=== PATIENT | male | born 1995 | race Native Hawaiian/Other Pacific Islander ===

== ENCOUNTER 2020-01-04 16:13 | Outpatient (REF) | payer OTHER, SELFPAY ==
[2020-01-04 16:33] LABS: MANUAL DIFF FLAG NO
[2020-01-04 16:39] LABS: Basophils Absolute Auto 0.1 X10*3/uL (0.0-0.2); Basophils Percent Auto 0.7 % (0-2); Eosinophils Absolute Auto 0.2 X10*3/uL (0.0-0.4); Eosinophils Percent Auto 2.5 % (0-4); Hematocrit 42.1 % (42-52); Hemoglobin 14.2 g/dl (14.0-18.0); Imm Gran Abs Auto 0.03 X10*3/uL (0.00-0.03); Imm Gran Pct Auto 0.4 % (0.0-0.4); Lymphocytes Absolute Auto 3.2 X10*3/uL (1.2-4.9); Lymphocytes Percent Auto 38.7 % (20-40); Mean Corpuscular HGB Conc 33.7 g/dl (31.0-36.0); Mean Corpuscular Hemoglobin 27.8 pg (27.0-33.0); Mean Corpuscular Volume 82.5 fL (80-98); Mean Platelet Volume 9.8 fL (9.4-12.4); Monocytes Absolute Auto 0.7 X10*3/uL (0.1-1.2); Monocytes Percent Auto 8.2 % (2-11); Neutrophils Absolute Auto 4.1 X10*3/uL (2.0-8.3); Neutrophils Percent Auto 49.5 % (45-73); Platelet Count 276 X10*3/uL (160-400); Red Cell Distribution Width 12.7 % (11.0-16.0); White Blood Count 8.3 X10*3/uL (4.8-10.8)
[2020-01-04 17:08] LABS: Alanine Aminotransferase 74 U/L (0-40); Albumin Level 4.5 g/dL (3.5-5.0); Alkaline Phosphatase 66 U/L (39-117); Anion Gap 13 (12-20); Aspartate Amino Transferase 36 U/L (5-37); Bilirubin Total 0.7 mg/dL (0.0-1.0); Blood Urea Nitrogen 17 mg/dL (9-16); Calcium 8.9 mg/dL (8.4-10.2); Carbon Dioxide 25 mmol/L (22-29); Chloride 106 mmol/L (96-108); Cholesterol 208 mg/dL; Estimated Glomerular Filt Rate > 60; Glucose Random 90 mg/dL (60-115); Potassium 4.2 mmol/l (3.3-5.1); Sodium 140 mmol/L (135-145); Total Protein 7.3 g/dL (6.5-8.0)
== END 2020-01-04 16:14 | disposition home or self-care (01) ==
LOC: HO.LAB 16:13
PROVIDERS: PCP Internal Medicine; Visit Provider Internal Medicine
DX: K57.90 Diverticulosis of intestine, part unspecified, without perforation or abscess without bleeding (principal)
CPT/HCPCS: 36415; 80053; 82465; 85025

== ENCOUNTER 2020-02-29 11:25 | Emergency (ER) | payer OTHER, SELFPAY ==
--- NOTE | 2020-02-29 11:58 | ED_ITS ---
HPI - Abdominal Pain General Chief Complaint: Abdominal Pain Stated Complaint: STOMACH PAIN Time Seen by Provider: 02/29/20 11:57 Source: patient Mode of arrival: ambulatory Limitations: no limitations History of Present Illness HPI narrative: 24-year-old male with a past medical history of diverticulitis tear with lower abdominal pain since yesterday. No nausea, vomiting, diarrhea. No fevers, chills or urinary symptoms. He tells me his last episode of diverticulitis was in November and he was treated with a course of antibiotics with resolved of symptoms. He tells me this feels similar MD elicited complaint: abdominal pain Pertinent past history: diverticulitis Onset (ago): day(s) (1) Pain Consistency: constant Location: RLQ and LLQ Severity: mild Quality: cramping Radiation: none Migration to: no migration Exacerbating factors: nothing Relieving factors: nothing Associated symptoms: denies other symptoms Related Data Previous Rx's Medication Instructions Recorded hydrocodone-acetaminophen 1 tab PO Q6H PRN #10 tab 02/29/20 levofloxacin 750 mg PO DAILY 7 Days #7 tab 02/29/20 metronidazole [Flagyl] 500 mg PO BID #14 tab 02/29/20 Allergies Allergy/AdvReac Type Severity Reaction Status Date / Time No Known Allergies Allergy Verified 02/29/20 12:17 Review of Systems Review of Systems Yes all other systems are reviewed and are negative Constitutional: Reports no additional constitutional complaints, Denies body ache(s), Denies chills, Denies fever(s), Denies headache(s) and Denies weakness Eyes: Reports no additional eye complaints and Denies change in vision Reports system reviewed and no additional complaints, except as documented, Denies dizziness, Denies headache(s), Denies nasal congestion, Denies nasal discharge and Denies neck pain Cardiovascular: Reports no additional cardiovascular complaints, Denies chest pain, Denies leg edema and Denies dyspnea Respiratory: Reports no additional respiratory complaints, Denies cough and Denies dyspnea Gastrointestinal: Reports no additional gastrointestinal complaints, Reports abdominal pain, Denies diarrhea, Denies nausea and Denies vomiting Genitourinary: Denies urinary incontinence Musculoskeletal: Reports no additional musculoskeletal complaints, Denies back pain, Denies arthralgias, Denies joint swelling, Denies neck pain, Denies numbness and Denies tingling Skin/Breast: Reports system reviewed and no additional complaints, except as docu and Denies rash Reports system reviewed and no additional complaints, except as documented, Denies Abnormal speech present, Denies dizziness, Denies headache(s), Denies numbness, Denies tingling and Denies weakness Physical Exam Vital Signs: Vital Signs: Last Vital Signs Temp 98.2 F 02/29/20 12:15 Pulse 61 02/29/20 14:58 Resp 16 02/29/20 14:58 BP 133/89 02/29/20 14:58 Pulse Ox 99 02/29/20 12:15 Body Mass Index 35.7 Const: General: cooperative, healthy appearing, comfortable and no acute distress Orientation/consciousness: patient oriented x3 Limitations: no limitations HENMT: Head: Yes normal to inspection Ears: hearing grossly normal bilaterally General nose exam: Normal external nose present Face and sinus: Yes normal facial exam Mouth: Normal oral and palatal mucosa present Throat: Yes posterior oropharynx normal Eyes: General: appearance normal, both eyes and all related structures Pupils: Equal, round and reactive pupils present Neck: Neck: Yes normal visual inspection Chest: Chest palpation & inspection: normal inspection of the chest Resp: Effort & Inspection: normal respiratory effort Auscultation: clear to auscultation bilaterally Cardio: Rate: regular rate Rhythm: regular rhythm Peripheral pulses: Peripheral pulses 2+ throughout GI: Inspection: Yes normal to inspection Palpation (GI): Soft to palpation and Tenderness to palpation present (GI) (Moderate tenderness with no rebound or guarding) in the LLQ and in the RLQ Auscultation: normal bowel sounds Back/Spine/Pelvis: Thoracic/Lumbar Spine: thoracic and lumbar spine normal to inspection Skin: General skin exam: no rashes or lesions noted Neuro: General: patient oriented x3, no focal motor deficits and normal sensation to monofilament Cranial nerves: Yes Equal, round and reactive pupils present Cognition (Neuro): normal cognition Speech: No Abnormal speech present Gait exam (Neuro): Normal gait present Motor exam (neuro): 5/5 motor strength present throughout Extrem: General: Yes normal to inspection Course Course Course Narrative: 24-year-old male here with lower abdominal pain since yesterday. Has a history of diverticulitis and this feels similar. On exam has some moderate tenderness in the right lower and left lower quadrant. Will check labs, UA, CT a/P. Provide analgesia and reassess. 2040-CT consistent with proximal sigmoid diverticulitis. No evidence of obstruction, free air or air fluid collections. Patient has stable vital signs, he is afebrile. Well-appearing and feeling improved after 1 dose of IV analgesia. Will start patient on p.o. antibiotics. Have him follow up outpatient with surgery as needed. Reviewed worrisome signs and symptoms of when to return to the emergency department. Comfortable with discharge home. MDM - Abdominal Pain MDM Narrative Medical decision making narrative: Diverticulitis, appendicitis, gastroenteritis, Medical Records Attestation: I reviewed the patient's medical records. Lab Data Attestation: I reviewed the patient's lab results. Result diagrams: 02/29/20 12:02/29/20 12: Labs: Lab Results 02/29/20 02/29/20 02/29/20 Range/Units 12: 12: 12: WBC 11.3 H (4.8-10.8) X10*3/uL RBC 5.14 (4.60-5.80) X10*6/uL Hgb 14.6 (14.0-18.0) g/dl Hct 42.4 (42-52) % MCV 82.5 (80-98) fL MCH 28.4 (27.0-33.0) pg MCHC 34.4 (31.0-36.0) g/dl RDW 12.5 (11.0-16.0) % Plt Count 309 (160-400) X10*3/uL MPV 9.5 (9.4-12.4) fL Immature Gran % (Auto) 0.3 (0.0-0.4) % Neut % (Auto) 68.7 (45-73) % Lymph % (Auto) 22.5 (20-40) % Nicholas % (Auto) 6.8 (2-11) % Eos % (Auto) 1.3 (0-4) % Baso % (Auto) 0.4 (0-2) % Lymph # (Auto) 2.6 (1.2-4.9) X10*3/uL Nicholas # (Auto) 0.8 (0.1-1.2) X10*3/uL Eos # (Auto) 0.2 (0.0-0.4) X10*3/uL Baso # (Auto) 0.1 (0.0-0.2) X10*3/uL Abs Immat Gran (auto) 0.03 (0.00-0.03) X10*3/uL Absolute Neuts (auto) 7.8 (2.0-8.3) X10*3/uL Absolute Nucleated RBC 0.000 (0.0-0.012) X10*3/uL Nucleated RBC % (auto) 0.0 (0.0-0.2) /100WBC Sodium 139 (135-145) mmol/L Potassium 4.1 (3.3-5.1) mmol/l Chloride 105 (96-108) mmol/L Carbon Dioxide 27 (22-29) mmol/L Anion Gap 11 L (12-20) BUN 17 H (9-16) mg/dL Creatinine 0.77 (0.5-1.4) mg/dL Estim Creat Clear Calc 175.0 Estimated GFR > 60 Random Glucose 90 (60-115) mg/dL Calcium 9.1 (8.4-10.2) mg/dL Total Bilirubin 1.3 H (0.0-1.0) mg/dL Direct Bilirubin 0.4 (0.0-0.5) mg/dL AST 22 (5-37) U/L ALT 45 H (0-40) U/L Alkaline Phosphatase 67 (39-117) U/L Total Protein 7.3 (6.5-8.0) g/dL Albumin 4.4 (3.5-5.0) g/dL Lipase 12 (8-78) U/L Urine Color YELLOW Urine Appearance CLEAR Urine pH 6.0 (5.0-8.0) Ur Specific [place] 1.025 (1.005-1.025) Urine Protein NEG (NEG-TRACE) MG/DL Urine Glucose (UA) NEG (NEG) MG/DL Urine Ketones NEG (NEG) MG/DL Urine Blood NEG (NEG) Urine Nitrite NEG (NEG) Ur Leukocyte Esterase NEG (NEG) Imaging Data CT scan - abdomen: Attestation: I personally reviewed and interpreted this imaging study as follows: Radiologist's impression: [address] [address] [address] Scan Report Signed Patient: Prince Del Cid LMR#: [id number] : 1995Acct:[id number] Age/Sex: 24 / MADM Date: 02/29/20 Loc: HO.ED Attending Dr: Ordering Physician: JAMES CHRISTIANSON NP Date of Service: 02/29/20 Procedure(s): CT abdomen pelvis w con Accession Number(s): [id number] cc: JAMES CHRISTIANSON NP~ EXAMINATION: CT ABDOMEN AND PELVIS WITH CONTRAST CLINICAL INFORMATION: Abdominal pain COMPARISON: CT abdomen and pelvis 12/04/2019 TECHNIQUE: Multidetector volumetric images were obtained from the superior aspect of the liver through the pubic symphysis following administration 85 mL of Omnipaque 350 intravenous contrast. Sagittal and coronal reformatted images were obtained on the technologist's workstation. Oral contrast: No This CT examination was performed using dose optimization techniques as appropriate, variously including the following: *Automated exposure control *Adjustment of mA and/or kV according to patient size (this includes techniques or standardized protocols for targeted exams where dose is matched to indication/reason for exam; i.e. extremities or head) *Use of iterative reconstruction technique DLP: 817 mGy-cm FINDINGS: LUNG BASES: The lung bases are clear. The heart size is normal. LIVER, GALLBLADDER, AND BILIARY TREE: The liver is normal in size, shape, and attenuation. No focal hepatic lesion or biliary ductal dilatation is present. The gallbladder is unremarkable with no evidence of radiopaque gallstones, gallbladder wall thickening, or obvious pericholecystic inflammatory changes. PANCREAS: Unremarkable. SPLEEN: Unremarkable. ADRENAL GLANDS: Unremarkable. KIDNEYS AND URETERS: The kidneys are normal in size, shape, and attenuation. No hydronephrosis, hydroureter, or calculi seen. No perinephric stranding. BLADDER: Unremarkable. GASTROINTESTINAL TRACT: There are scattered diverticula seen throughout the colon most prominent in the sigmoid colon with mild mural thickening and pericolic fat stranding proximal sigmoid colon suggestive of diverticulitis. There is no free air or air-fluid collection seen. Rest of the colon appears unremarkable. The small bowel loops are normal caliber. Appendix is normal caliber. ABDOMINAL WALL: No significant hernia is appreciated. LYMPH NODES: Small shotty lymph nodes are seen in bilateral hilar region similar to previous study. VASCULAR: Unremarkable. PELVIC VISCERA: No free air or free fluid. OSSEOUS STRUCTURES: No lytic or sclerotic process seen. CT/CT abdomen pelvis w con IMPRESSION: Diffuse colonic alkalosis with proximal sigmoid diverticulitis. No obstruction, free air or air fluid collections. Similar findings were seen on the previous exam 12/04/2019 Discharge Plan Discharge Clinical Impression: Diverticulitis Patient Disposition: Home, Self-Care Instructions: Diverticulitis (ED), Diverticulitis Diet (ED) Additional Instructions: Low residue diet Start antibiotics today Increase fluids, rest Follow-up with general surgery Prescriptions: New metronidazole [Flagyl] 500 mg tablet 500 mg PO BID Qty: 14 RF: 0 levofloxacin 750 mg tablet 750 mg PO DAILY 7 Days Qty: 7 RF: 0 hydrocodone-acetaminophen 5-300 mg tablet 1 tab PO Q6H PRN (Reason: pain) Qty: 10 RF: 0 Referrals: Winter Alvarez MD [Physician] - 2 days Interventions: ED Discharge Assessment Last Done: 02/29/20 15:15 Discharge Date/Time: 02/29/20 15:15 Print Language: [place]ian [facility] Past Medical History Attestation statement: The following information was validated with the patient. Source: old records reviewed and nursing notes reviewed Medical History No known health problems Social History Social History Advance Directives: No Advance Directives Information Provided: Yes
[2020-02-29 12:15] VITALS: BP 132/92; PULSE 56; RESP 18; TEMP 36.8; O2SAT 99; BMI 35.7
--- NOTE | 2020-02-29 12:17 | CT_ITS ---
EXAMINATION: CT ABDOMEN AND PELVIS WITH CONTRAST CLINICAL INFORMATION: Abdominal pain COMPARISON: CT abdomen and pelvis 12/04/2019 TECHNIQUE: Multidetector volumetric images were obtained from the superior aspect of the liver through the pubic symphysis following administration 85 mL of Omnipaque 350 intravenous contrast. Sagittal and coronal reformatted images were obtained on the technologist's workstation. Oral contrast: No This CT examination was performed using dose optimization techniques as appropriate, variously including the following: *Automated exposure control *Adjustment of mA and/or kV according to patient size (this includes techniques or standardized protocols for targeted exams where dose is matched to indication/reason for exam; i.e. extremities or head) *Use of iterative reconstruction technique DLP: 817 mGy-cm FINDINGS: LUNG BASES: The lung bases are clear. The heart size is normal. LIVER, GALLBLADDER, AND BILIARY TREE: The liver is normal in size, shape, and attenuation. No focal hepatic lesion or biliary ductal dilatation is present. The gallbladder is unremarkable with no evidence of radiopaque gallstones, gallbladder wall thickening, or obvious pericholecystic inflammatory changes. PANCREAS: Unremarkable. SPLEEN: Unremarkable. ADRENAL GLANDS: Unremarkable. KIDNEYS AND URETERS: The kidneys are normal in size, shape, and attenuation. No hydronephrosis, hydroureter, or calculi seen. No perinephric stranding. BLADDER: Unremarkable. GASTROINTESTINAL TRACT: There are scattered diverticula seen throughout the colon most prominent in the sigmoid colon with mild mural thickening and pericolic fat stranding proximal sigmoid colon suggestive of diverticulitis. There is no free air or air-fluid collection seen. Rest of the colon appears unremarkable. The small bowel loops are normal caliber. Appendix is normal caliber. ABDOMINAL WALL: No significant hernia is appreciated. LYMPH NODES: Small shotty lymph nodes are seen in bilateral hilar region similar to previous study. VASCULAR: Unremarkable. PELVIC VISCERA: No free air or free fluid. OSSEOUS STRUCTURES: No lytic or sclerotic process seen. CT/CT abdomen pelvis w IV con IMPRESSION: Diffuse colonic alkalosis with proximal sigmoid diverticulitis. No obstruction, free air or air fluid collections. Similar findings were seen on the previous exam 12/04/2019
[2020-02-29] MEDS: Morphine Sulfate 4 MG/ML CARTRIDGE IVPUSH (12:35)
[2020-02-29] MEDS: ondansetron HCL 4 MG/2 ML VIAL IVPUSH (12:35)
[2020-02-29 12:37] LABS: MANUAL DIFF FLAG NO
[2020-02-29 12:41] LABS: Glucose Urine UA NEG (NEG); Leukocyte Esterase Urine NEG (NEG); Nitrite Urine NEG (NEG); Specific Gravity - Urine 1.025 (1.005-1.025); Urine Blood NEG (NEG); Urine Ketones NEG (NEG); Urine Protein NEG (NEG-TRACE)
[2020-02-29 12:42] LABS: Appearance Urine CLEAR; Color Urine YELLOW
[2020-02-29 12:44] LABS: Basophils Absolute Auto 0.1 X10*3/uL (0.0-0.2); Basophils Percent Auto 0.4 % (0-2); Eosinophils Absolute Auto 0.2 X10*3/uL (0.0-0.4); Eosinophils Percent Auto 1.3 % (0-4); Hematocrit 42.4 % (42-52); Hemoglobin 14.6 g/dl (14.0-18.0); Imm Gran Abs Auto 0.03 X10*3/uL (0.00-0.03); Imm Gran Pct Auto 0.3 % (0.0-0.4); Lymphocytes Absolute Auto 2.6 X10*3/uL (1.2-4.9); Lymphocytes Percent Auto 22.5 % (20-40); Mean Corpuscular HGB Conc 34.4 g/dl (31.0-36.0); Mean Corpuscular Hemoglobin 28.4 pg (27.0-33.0); Mean Corpuscular Volume 82.5 fL (80-98); Mean Platelet Volume 9.5 fL (9.4-12.4); Monocytes Absolute Auto 0.8 X10*3/uL (0.1-1.2); Monocytes Percent Auto 6.8 % (2-11); Neutrophils Absolute Auto 7.8 X10*3/uL (2.0-8.3); Neutrophils Percent Auto 68.7 % (45-73); Platelet Count 309 X10*3/uL (160-400); Red Blood Count 5.14 X10*6/uL (4.60-5.80); Red Cell Distribution Width 12.5 % (11.0-16.0); White Blood Count 11.3 X10*3/uL (4.8-10.8)
[2020-02-29 13:11] LABS: Alanine Aminotransferase 45 U/L (0-40); Albumin Level 4.4 g/dL (3.5-5.0); Alkaline Phosphatase 67 U/L (39-117); Anion Gap 11 (12-20); Aspartate Amino Transferase 22 U/L (5-37); Bilirubin Direct 0.4 mg/dL (0.0-0.5); Bilirubin Total 1.3 mg/dL (0.0-1.0); Blood Urea Nitrogen 17 mg/dL (9-16); Calcium 9.1 mg/dL (8.4-10.2); Carbon Dioxide 27 mmol/L (22-29); Chloride 105 mmol/L (96-108); Estimated Glomerular Filt Rate > 60; Glucose Random 90 mg/dL (60-115); Lipase 12 U/L (8-78); Potassium 4.1 mmol/l (3.3-5.1); Sodium 139 mmol/L (135-145); Total Protein 7.3 g/dL (6.5-8.0)
[2020-02-29] MEDS: iohexoL 350 MG/ML 100 ML INFUS..BTL IV (13:37)
[2020-02-29 14:58] VITALS: BP 133/89; PULSE 61; RESP 16
== END 2020-02-29 15:15 | disposition home or self-care (01) ==
PROVIDERS: Nurse Practitioner Family; Emergency Provider Emergency Medicine; PCP Internal Medicine
DX: K57.32 Diverticulitis of large intestine without perforation or abscess without bleeding (principal); R10.32 Left lower quadrant pain; Z79.899 Other long term (current) drug therapy
CPT/HCPCS: 36415; 74177; 80048; 80076; 81003; 83690; 85025; 96374; 96375; 99283; 99284; J2270; J2405; Q9967

== ENCOUNTER → 2020-03-08 15:38 | Outpatient (BNVA) | payer OTHER, SELFPAY | PROVIDERS: PCP Internal Medicine; Visit Provider Surgery | DX: K57.92 Diverticulitis of intestine, part unspecified, without perforation or abscess without bleeding (principal) | CPT/HCPCS: 99202 ==

== ENCOUNTER → 2020-04-26 09:56 | Outpatient (BNVA) | payer OTHER, SELFPAY | PROVIDERS: PCP Internal Medicine; Visit Provider Surgery | DX: K57.92 Diverticulitis of intestine, part unspecified, without perforation or abscess without bleeding (principal) | CPT/HCPCS: 99212 ==

== ENCOUNTER 2020-05-09 07:30 | Day surgery (SDC) | payer OTHER, SELFPAY ==
[2020-05-03 12:54] VITALS: BMI 36.5
--- NOTE | 2020-05-08 10:20 | HO.ANESPROP2 ---
HPI - Anesthesia Eval Consult details Narrative: 25yo M for Colonoscopy PMFSH Active Problems Active Problems: All Active Problems (Updated 05/03/20 @ 12:51 by Era Moseley) Diverticulitis (Acute) Past Medical History Medical History (Updated 05/03/20 @ 12:51 by Era Moseley) History of diverticulitis Surgical History Surgical History (Updated 05/03/20 @ 12:54 by Era Moseley) No pertinent past surgical history Social History Social History (Updated 05/03/20 @ 12:52 by Era Moseley) Alcohol intake: current Alcohol intake frequency: holidays/special occasions only Smoking Status: Never smoker Meds Allergies Allergy/AdvReac Type Severity Reaction Status Date / Time No Known Allergies Allergy Verified 05/03/20 12:52 Exam Exam Date and Time: May 08, 2020 1020 Height,Weight and Vital Signs: Height 5 ft 8 in Weight 108.862 kg Pertinent Lab Results Pertinent Lab Results: Laboratory Tests 02/29/20 02/29/20 12:31 12:31 WBC 11.3 H Hgb 14.6 Hct 42.4 Plt Count 309 Sodium 139 Potassium 4.1 Chloride 105 Carbon Dioxide 27 BUN 17 H Creatinine 0.77 Assessment and Plan Assessment Anesthesia Assessment: Chart Reviewed
[2020-05-09 07:46] VITALS: BP 138/85; PULSE 77; RESP 18; TEMP 36.2; O2SAT 98
--- NOTE | 2020-05-09 08:06 | MHC.SHP ---
Pre-Procedural Eval Section B Chief Complaint: Diverticulitis Allergies: Allergies Allergy/AdvReac Type Severity Reaction Status Date / Time No Known Allergies Allergy Verified 05/03/20 12:52 Plan I have reviewed the history and physical and performed a pertinent physical examination on my patient. No changes have occurred unless specified.
[2020-05-09] MEDS: Lactated Ringers 1,000 ML 100 ML IVCONT (08:15)
--- NOTE | 2020-05-09 08:42 | W.PM.OPN ---
Operative Note Operative Note Date of Service: 05/09/20 Narrative: PREOP DIAGNOSIS: RECENT DIVERTICULITIS POSTOP: DIVERTICULOSIS, MOSTLY IN SIGMOID PROCEDURE: COLONOSCOPY SURGEON: ZACHERY ROLAND MD The patient is 25-year-old male was had diverticulitis last year. I had therefore recommended for him to undergo colonoscopy to rule out any other pathology. He understood the technique of the procedure. He was aware of the risks, benefits, and alternatives. He was brought to the operating room and placed in left lateral decubitus position under monitored anesthesia care. A full digital rectal exam was done. There were no palpable anal lesions. The tip of the Olympus colonoscope was gently introduced through the anal orifice advanced with insufflation all the way to the cecum. The cecum was intubated. The cecum was identified by visualization of the ileocecal valve as well as the appendiceal orifice. The cecal mucosa was unremarkable. The scope was graduallyt withdrawn with careful examination of the entire colonic mucosa being done with scope withdrawal. The patient had adequate bowel prep so it was unlikely that any lesion may have been missed. There was note of scattered diverticuli in the left colon and sigmoid. There was no evidence of any residual inflammation. The rectum was reached. There were no lesions seen. The anal canal were unremarkable. The scope was then withdrawn completely. The patient tolerated well. There were no immediate complications noted.
[2020-05-09 08:46] VITALS: BP 111/65; PULSE 58; RESP 16; TEMP 36.9; O2SAT 96
--- NOTE | 2020-05-09 08:48 | PM.OP ---
Brief Operative Note Date of Service: 05/09/20 Pre-op diagnosis: Recent diverticulitis Post-op diagnosis: other (Diverticulosis) Procedure: Colonoscopy Surgeon: Primo Lui MD Anesthesia: MAC Estimated blood loss (mL): 0 Pathology: none sent Condition: stable Disposition: PACU
[2020-05-09 09:00] VITALS: BP 118/81; PULSE 69; RESP 16; TEMP 36.9; O2SAT 98
== END 2020-05-09 09:27 | disposition home or self-care (01) ==
PROVIDERS: PCP Internal Medicine; Visit Provider Surgery
PROC: 0DJD8ZZ Inspection of Lower Intestinal Tract, Via Natural or Artificial Opening Endoscopic (ICD-10-PCS; CPT 45378; principal; 2020-05-09 08:20)
DX: K57.30 Diverticulosis of large intestine without perforation or abscess without bleeding (principal); Z87.19 Personal history of other diseases of the digestive system
CPT/HCPCS: 45378; J2250

== ENCOUNTER → 2020-05-31 08:45 | Outpatient (BNVA) | payer OTHER, SELFPAY | PROVIDERS: PCP Internal Medicine; Visit Provider Surgery | DX: K57.92 Diverticulitis of intestine, part unspecified, without perforation or abscess without bleeding (principal) | CPT/HCPCS: 99212 ==

== ENCOUNTER 2020-06-15 10:06 | Outpatient (REF) | payer OTHER, SELFPAY ==
[2020-06-15 10:33] LABS: COVID-19 Test Positive (Negative)
== END 2020-06-15 10:07 | disposition home or self-care (01) ==
LOC: HO.LAB 10:06
PROVIDERS: Visit Provider Internal Medicine
DX: Z20.822 Contact with and (suspected) exposure to COVID-19 (principal)
CPT/HCPCS: 36415; 87635; C9803

== ENCOUNTER 2020-06-27 12:10 | Outpatient (REF) | payer OTHER, SELFPAY ==
[2020-06-27 12:33] LABS: COVID-19 Test Negative (Negative)
== END 2020-06-27 12:11 | disposition home or self-care (01) ==
LOC: HO.LAB 12:10
PROVIDERS: Visit Provider Internal Medicine
DX: Z20.822 Contact with and (suspected) exposure to COVID-19 (principal)
CPT/HCPCS: 36415; 87635; C9803

== ENCOUNTER 2024-04-26 14:10 | Emergency (ER) | payer BC, SELFPAY ==
--- NOTE | ~2024-04-26 | CT_ITS ---
CLINICAL HISTORY: left parotid edema CT soft tissue neck with contrast Comparison: None Findings: Moderate mucosal thickening and opacification of the bilateral maxillary sinuses and opacification of few anterior ethmoid air cells. Remainder of the paranasal sinuses and bilateral mastoid air cells are clear. No prevertebral fluid. Epiglottis is within normal limits. Pharyngeal mucosal space and parapharyngeal fat are normal. Moderate enlargement and surrounding edema of the left parotid gland. No intra or extra ductal dilation. No suspicious thyroid nodules. No consolidation at the lung apices. No acute fracture or dislocation. IMPRESSION: Moderate enlargement and edema of the left parotid gland, consistent with acute left parotitis. No evidence of intra or extra ductal dilation. Bilateral maxillary sinusitis. This document has been electronically signed by: Orly Kennedy MD on 04/26/2024 21:29:44
[2024-04-26 14:31] VITALS: BP 140/96; PULSE 65; RESP 18; TEMP 37.2; O2SAT 98; BMI 31.6
--- NOTE | 2024-04-26 14:36 | ED.GENADULT ---
HPI - General Adult General Chief complaint: General Medical Stated complaint: L Facial Jaw Swelling Time Seen by Provider: 04/26/24 19:40 Source: patient, RN notes reviewed and old records reviewed Mode of arrival: ambulatory Limitations: no limitations History of Present Illness ED Provider: Michelle THORNTON narrative: 29-year-old male with past medical history significant for diverticulitis presents for evaluation of facial swelling. Patient reports that he first noticed swelling to the left side of his face yesterday but his symptoms have been getting worse. He denies any dental pain. He has pain to left side of his face when he swallows but he reports his pain is currently a 3/10 The patient reports fevers and chills though he did not take his temperature. The patient reports a mild cough since last week He believes he is up-to-date on all of his vaccinations He denies any sick contacts Related Data Previous Rx's ?Medication ?Instructions ?Recorded sodium,potassium,mag sulfates 17.5 See Rx Instructions PO .COMPLEX 04/26/20 gram-3.13 gram-1.6 gram oral soln #354 mL (Suprep Bowel Prep Kit) levofloxacin 750 mg tablet 750 mg PO DAILY 7 days #10 tabs 03/25/21 metronidazole 500 mg tablet 500 mg PO BID #20 tabs 03/25/21 ibuprofen 400 mg tablet 400 mg PO Q6H PRN pain #20 tabs 07/20/22 amoxicillin 875 mg-potassium 1 tab PO Q12H #13 tabs 04/26/24 clavulanate 125 mg tablet Allergies Allergy/AdvReac Type Severity Reaction Status Date / Time No Known Allergies Allergy Verified 04/26/24 14:37 Review of Systems Constitutional: Constitutional: Reports chills and Reports fever(s) ENT: Reports facial pain, Denies lip swelling, Denies mouth pain and Denies sore throat Comments: left facial swelling Cardiovascular: Cardiovascular: Denies chest pain and Denies dyspnea Respiratory: Respiratory: Reports cough and Denies dyspnea Gastrointestinal: Gastrointestinal: Denies abdominal pain, Denies nausea and Denies vomiting Psychiatric: Psychiatric: Denies anxiety Allergic/Immunologic: Allergic/Immunologic: Denies lip swelling PMFSH Past Medical History Medical History History of diverticulitis Surgical History History of colonoscopy No pertinent past surgical history Social History Social History Alcohol intake: current Alcohol intake frequency: holidays/special occasions only Alcohol type: beer Smoked in Last 30 Days: No Substance Use Type: Marijuana Substance Use Frequency: Socially Advance Directives: No Advance Directives Information Provided: No Physical Exam ED Vital Signs: Vital Signs - 24 hr 04/26/24 14:31 04/26/24 20:38 Temperature 99 F 98.6 F Pulse Rate 65 61 Respiratory Rate 18 16 Blood Pressure 140/96 H 122/72 Pulse Oximetry 98 96 Oxygen Delivery Method Room Air Room Air BMI result Body Mass Index 31.6 Const General: healthy appearing, comfortable, no acute distress, alert and awake Nutritional Appearance: well nourished Orientation/consciousness: patient oriented x3 HENMT Other: Patient has moderate left-sided facial edema primarily over the left preauricular area around the parotid gland. This extends to about the jaw line but he has no anterior neck edema. There was no trismus. There was no Crow's angina. No evidence exudates, tonsillar hypertrophy or peritonsillar abscess. Good dentition Head: Yes atraumatic Eyes Eyelids: Yes eyelids normal Conjunctivae: conjunctivae normal Sclerae: sclerae normal Corneas: corneas normal Pupils: Equal, round and reactive pupils present EOM: EOMs intact bilaterally Neck Neck: Yes full ROM Resp Effort & Inspection: normal respiratory effort, able to speak in complete sentences and not labored Skin General skin exam: elasticity normal Neuro General: patient oriented x3 Cranial nerves: Yes Equal, round and reactive pupils present and Yes Bilaterally intact EOM present Cognition (Neuro): normal cognition Extrem Other: Moving all extremities well without any obvious deformities Course Course Course Narrative: This is an RME: Additional HPI, ROS, PE not included below will be deferred to primary provider. RME assessment and note performed by: Nayla Bird PA-C This is a [id number] who presents to the ER with complaints of left sided facial swelling x 1 day. No dental pain. TTP and left sided facial swelling noted. Plan: Labs, +/- diagnostic imaging Medications Administered Discontinued Medications Generic Name Dose Route Start Last Admin Trade Name Freq PRN Reason Stop Dose Admin Iohexol 60 ml 02/17/25 21:02 04/26/24 21:03 Iohexol 350 Mg/Ml 100 Ml Infus..Btl IV 04/26/24 21:03 60 ml ONCE ONE Administration Medical Decision Making Medical Decision Making [facility] Narrative: This is a healthy 29-year-old male presenting for evaluation of left-sided facial pain and swelling. He also has fevers and chills with associated dry cough. The patient tested positive for influenza a as well as COVID-19. This seems his symptoms started about 1 week ago, it does not seem as though he is in the window for Tamiflu treatment. His facial swelling started yesterday. This is not typical of influenza or COVID-19. Plan to get a CT scan of the neck with IV contrast to evaluate for abscess versus sialoadenitis versus parotitis. The patient believes he has all of his childhood vaccinations but is unsure specifically of the MMR vaccine Differential Diagnosis Differential Diagnoses: The differential diagnosis associated with the presentation includes Lymphadenopathy Adenitis Sialoadenitis Parotitis Peritonsillar abscess less likely Lab Data [facility] Lab Attestation statement: I reviewed the patient's lab results. Mild leukopenia to 3.6 which is likely related to his viral illness. No anemia. Normal platelet count. No significant electrolyte abnormalities warranting intervention 04/26/24 15:51 04/26/24 15:51 Labs: Lab Results 04/26/24 Range/Units 15:51 WBC 3.6 L (4.8-10.8) X10*3/uL RBC 5.21 (4.60-5.80) X10*6/uL Hgb 15.3 (14.0-18.0) g/dl Hct 43.2 (42.0-52.0) % MCV 82.9 (80.0-98.0) fL MCH 29.4 (27.0-33.0) pg MCHC 35.4 (31.0-36.0) g/dl RDW 12.0 (11.0-16.0) % Plt Count 291 (160-400) X10*3/uL MPV 9.2 L (9.4-12.4) fL Immature Gran % (Auto) 0.6 H (0.0-0.4) % Neut % (Auto) 35.0 L (45-73) % Lymph % (Auto) 48.2 H (20-40) % [place] % (Auto) 14.6 H (2-11) % Eos % (Auto) 0.8 (0-4) % Baso % (Auto) 0.8 (0-2) % Lymph # (Auto) 1.8 (1.2-4.9) X10*3/uL [place] # (Auto) 0.5 (0.1-1.2) X10*3/uL Eos # (Auto) 0.0 (0.0-0.4) X10*3/uL Baso # (Auto) 0.0 (0.0-0.2) X10*3/uL Abs Immat Gran (auto) 0.02 (0.00-0.03) X10*3/uL Absolute Neuts (auto) 1.3 L (2.0-8.3) x10*3/uL Absolute Nucleated RBC 0.000 (0.0-0.012) X10*3/uL Nucleated RBC % (auto) 0.0 (0.0-0.2) /100WBC ESR 25 H (0-15) MM/HR Sodium 140 (135-145) mmol/L Potassium 3.7 (3.3-5.1) mmol/L Chloride 107 (96-108) mmol/L Carbon Dioxide 23 (22-29) mmol/L Anion Gap 14 (12-20) BUN 20 H (9-16) mg/dL Creatinine 0.78 (0.5-1.4) mg/dL Estim Creat Clear Calc 155.7 Estimated GFR > 60 Random Glucose 82 (60-115) mg/dL Calcium 9.5 (8.4-10.2) mg/dL Total Bilirubin 0.6 (0.0-1.0) mg/dL Direct Bilirubin 0.2 (0.0-0.5) mg/dL AST 42 H (5-37) U/L ALT 59 H (0-40) U/L Alkaline Phosphatase 71 (39-117) U/L C-Reactive Protein 3.11 H (< or = 0.50) mg/dL Total Protein 8.8 H (6.5-8.0) g/dL Albumin 4.7 (3.5-5.0) g/dL Influenza Type A (PCR) POSITIVE A (Negative) Influenza Type B (PCR) NEGATIVE (Negative) RSV RNA Qual (PCR) NEGATIVE (Negative) SARS-CoV-2 RNA (RT-PCR) POSITIVE A (Negative) S. pyogenes GrpA ZEUS Negative (Negative) Discharge Plan Discharge Clinical Impression: Influenza A, COVID-19, Acute parotitis Patient Disposition: Home, Self-Care Instructions: Influenza (ED), Mumps in Adults (ED), COVID-19 (Coronavirus Disease 2019) (ED) Additional Instructions: You tested positive for influenza, COVID-19. Your CT scan shows inflammation of your parotid gland called parotitis Take Augmentin twice daily for 7 days. Apply warm compresses to the swollen area. Return for new or worsening symptoms, especially if you are having difficulty swallowing or breathing Prescriptions: New amoxicillin-pot clavulanate 875-125 mg tablet 1 tab PO Q12H Qty: 13 0RF No Action metronidazole 500 mg tablet 500 mg PO BID Qty: 20 0RF levofloxacin 750 mg tablet 750 mg PO DAILY 7 Days Qty: 10 0RF ibuprofen 400 mg tablet 400 mg PO Q6H PRN (Reason: pain) Qty: 20 0RF Suprep Bowel Prep Kit 17.5-3.13-1.6 gram recon soln See Rx Instructions PO .COMPLEX Qty: 354 0RF Rx Instructions: DILUTE; drink full amount early evening before AND next morning at least 2 hr before procedure; follow w 32 oz. water PO Stand Alone Forms: Work/School Release Print Language: [place]an
[2024-04-26 15:56] LABS: MANUAL DIFF FLAG NO
[2024-04-26 16:03] LABS: Basophils Percent Auto 0.8 % (0-2); Eosinophils Percent Auto 0.8 % (0-4); Hematocrit 43.2 % (42.0-52.0); Hemoglobin 15.3 g/dl (14.0-18.0); Imm Gran Abs Auto 0.02 X10*3/uL (0.00-0.03); Imm Gran Pct Auto 0.6 % (0.0-0.4); Lymphocytes Absolute Auto 1.8 X10*3/uL (1.2-4.9); Lymphocytes Percent Auto 48.2 % (20-40); Mean Corpuscular HGB Conc 35.4 g/dl (31.0-36.0); Mean Corpuscular Hemoglobin 29.4 pg (27.0-33.0); Mean Corpuscular Volume 82.9 fL (80.0-98.0); Mean Platelet Volume 9.2 fL (9.4-12.4); Monocytes Absolute Auto 0.5 X10*3/uL (0.1-1.2); Monocytes Percent Auto 14.6 % (2-11); Neutrophils Absolute Auto 1.3 x10*3/uL (2.0-8.3); Platelet Count 291 X10*3/uL (160-400); Red Blood Count 5.21 X10*6/uL (4.60-5.80); White Blood Count 3.6 X10*3/uL (4.8-10.8)
[2024-04-26 16:05] LABS: IDNOW Serial# 58CA691E; Strep A Nucleic Acid Negative (Negative)
[2024-04-26 16:21] LABS: Alanine Aminotransferase 59 U/L (0-40); Albumin Level 4.7 g/dL (3.5-5.0); Anion Gap 14 (12-20); Aspartate Amino Transferase 42 U/L (5-37); Bilirubin Direct 0.2 mg/dL (0.0-0.5); Bilirubin Total 0.6 mg/dL (0.0-1.0); Blood Urea Nitrogen 20 mg/dL (9-16); C Reactive Protein 3.11 mg/dL (< or = 0.50); Calcium 9.5 mg/dL (8.4-10.2); Carbon Dioxide 23 mmol/L (22-29); Chloride 107 mmol/L (96-108); Creatinine Clr Calc Pharmacy 155.7; Estimated Glomerular Filt Rate > 60; Glucose Random 82 mg/dL (60-115); Potassium 3.7 mmol/L (3.3-5.1); Sodium 140 mmol/L (135-145); Total Protein 8.8 g/dL (6.5-8.0)
[2024-04-26 16:43] LABS: Erythrocyte Sedimentation Rate 25 MM/HR (0-15); Influenza A PCR POSITIVE (Negative); Influenza B PCR NEGATIVE (Negative); Resp Syncy Virus RNA Qual PCR NEGATIVE (Negative); SARS COV2 PCR INHOUSE POSITIVE (Negative)
[2024-04-26 17:16] LABS: Alkaline Phosphatase 71 U/L (39-117)
[2024-04-26 20:38] VITALS: BP 122/72; PULSE 61; RESP 16; TEMP 37; O2SAT 96
[2024-04-26] MEDS: iohexoL 350 MG/ML 100 ML INFUS..BTL 60 ML IV (21:03)
[2024-04-26 22:19] VITALS: BP 123/76; PULSE 78; RESP 18; TEMP 36.7; O2SAT 96
[2024-04-26] MEDS: Amoxicillin/Potassium Clav 875 MG TABLET PO (22:35)
[2024-04-26 22:38] VITALS: BP 123/79; PULSE 78; RESP 18; TEMP 36.7; O2SAT 96
== END 2024-04-26 22:39 | disposition home or self-care (01) ==
PROVIDERS: Physician Assistant Medical; Emergency Provider Emergency Medicine; PCP Internal Medicine
DX: J10.1 Influenza due to other identified influenza virus with other respiratory manifestations (principal); R51.9 Headache, unspecified; K11.20 Sialoadenitis, unspecified; R05.9 Cough, unspecified; Z03.818 Encounter for observation for suspected exposure to other biological agents ruled out; Z79.899 Other long term (current) drug therapy
CPT/HCPCS: 0241U; 70491; 80048; 80076; 85025; 85652; 86140; 87651; 99284; Q9967

== ENCOUNTER → 2024-04-26 20:26 | Outpatient (BNV) | payer SELFPAY | PROVIDERS: Emergency Provider Emergency Medicine; PCP Internal Medicine; Visit Provider Student in an Organized Health Care Education/Training Program | DX: K11.20 Sialoadenitis, unspecified (principal) | CPT/HCPCS: 70491 ==